=== PATIENT | male | born 1970 | race African-American/Black ===

== ENCOUNTER 2017-01-31 15:22 | Emergency (ER) | payer MEDICAID ==
[~2017-01-31] VITALS: Ht 175.3 cm; Wt 78.0 kg
[2017-01-31] MEDS ORDERED: ASPI-1159 PO (16:42)
[2017-01-31] MEDS ORDERED: EMPA1TAB7 PO (16:42)
[2017-01-31] MEDS ORDERED: LISI40TA4 PO (16:42)
[2017-01-31] MEDS ORDERED: ATOR10TA69 PO (16:42)
[2017-01-31] MEDS ORDERED: AMLO5TAB4 PO (16:42)
[2017-01-31] MEDS ORDERED: SITA100T11 PO (16:42)
[2017-01-31 16:49] LABS: BASOPHILS % 0.5 % (0.0-2.0); EOSINOPHILS % 2.4 % (0.0-5.0); HEMATOCRIT. 32.4 % (42.0-52.0); HEMOGLOBIN. 10.5 g/dL (14.0-18.0); LYMPHOCYTES % 21.8 % (20.0-50.0); MEAN CORPUSCULAR HEMOGLOBIN 26.5 pg (28.0-32.0); MEAN CORPUSCULAR VOLUME 81.7 fL (80.0-94.0); MONOCYTES % 6.3 % (2.0-8.0); PLATELET 280 x1000/uL (130-400); RED BLOOD CELL COUNT 3.97 mill/uL (4.7-6.1)
[2017-01-31 16:55] LABS: INR 1.2; PROTHROMBIN TIME 12.1 sec (9.4-11.6)
[2017-01-31 17:49] LABS: CHLORIDE 108 mEq/L (98-107)
[2017-01-31 17:52] LABS: CARBON DIOXIDE 22 mEq/L (21-32)
[2017-01-31] MEDS ORDERED: CLONIDINE 0.1MG TABLET PO ONE (19:30)
[2017-01-31 19:48] VITALS: BP 179/121
== END 2017-01-31 19:59 | disposition home or self-care (01) ==
LOC: ER 15:22
DX: R55 Syncope and collapse (principal); N17.9 Acute kidney failure, unspecified; N18.9 Chronic kidney disease, unspecified; I12.9 Hypertensive chronic kidney disease with stage 1 through stage 4 chronic kidney disease, or unspecified chronic kidney disease; E11.22 Type 2 diabetes mellitus with diabetic chronic kidney disease; Z79.82 Long term (current) use of aspirin
CPT/HCPCS: 36415; 70450; 80053; 85025; 85610; 93005; 99285; Z7610

== ENCOUNTER 2018-02-13 21:55 | Emergency (ER) | payer MEDICAID ==
[~2018-02-13] VITALS: Ht 170.2 cm; Wt 91.0 kg
[~2018-02-13 21:55] MED LIST: AMLO5TAB4 PO; ASPI-1159 PO; ATOR10TA69 PO; EMPA1TAB7 PO; LISI40TA4 PO; SITA100T11 PO
[2018-02-13] MEDS ORDERED: TETANUS, DIPHTHERIA, PERTUSSIS VAC/PF 0.5ML (>7YR OLD) IM ONE (22:45)
[2018-02-13] MEDS ORDERED: BACITRACIN ZINC OINT UDPKT TOP ONE (22:45)
[2018-02-14 00:16] VITALS: BP 115/68
== END 2018-02-14 00:39 | disposition home or self-care (01) ==
LOC: ER 21:55
DX: S80.212A Abrasion, left knee, initial encounter (principal); S60.512A Abrasion of left hand, initial encounter; N18.6 End stage renal disease; R07.89 Other chest pain; Z99.2 Dependence on renal dialysis; Z79.899 Other long term (current) drug therapy; V49.81XA Car occupant (driver) (passenger) injured in transport accident with military vehicle, initial encounter; Y93.89 Activity, other specified; Y92.89 Other specified places as the place of occurrence of the external cause; Y99.8 Other external cause status
CPT/HCPCS: 71045; 73562; 90471; 90715; 99284

== ENCOUNTER 2018-09-26 12:16 | Inpatient (IN) | payer MEDICAID ==
[~2018-09-26] VITALS: Ht 172.7 cm; Wt 80.7 kg
[2018-09-26] MEDS: BLOOD SUGAR DIAGNOSTIC STRIP TEST SCH ×2 (06:40→21:40)
[2018-09-26] MEDS: INSULIN LISPRO 100 UNITS/ML SUBCUT SCH ×2 (07:00→21:50)
[2018-09-26] MEDS ORDERED: ALBUTEROL (0.083%) 2.5MG/3ML NEB HHN ONE (12:45)
[2018-09-26] MEDS ORDERED: CALCIUM CHLORIDE 1GM/10ML SYR IV ONE (12:45)
[2018-09-26] MEDS ORDERED: SODIUM BICARBONATE 8.4% 1 MEQ/ML 50ML SYR IV ONE (12:45)
[2018-09-26] MEDS ORDERED: DEXTROSE 50% WATER 50ML SYRINGE IV ONE (12:45)
[2018-09-26] MEDS ORDERED: INSULIN REGULAR (HUMULIN R) 300UNITS/3ML IV ONE (12:45)
[2018-09-26 12:49] LABS: BASOPHILS % 1.3 % (0.0-2.0); EOSINOPHILS % 3.7 % (0.0-5.0); HEMATOCRIT. 33.6 % (42.0-52.0); HEMOGLOBIN. 10.6 g/dL (14.0-18.0); LYMPHOCYTES % 28.5 % (20.0-50.0); MEAN CORPUSCULAR HEMOGLOBIN 28.3 pg (28.0-32.0); MEAN CORPUSCULAR VOLUME 89.6 fL (80.0-94.0); MEAN PLATELET VOLUME 9.7 fl (7.4-10.4); MONOCYTES % 6.4 % (2.0-8.0); NEUTROPHILS % 60.1 % (40.0-76.0); PLATELET 241 x1000/uL (130-400); RED BLOOD CELL COUNT 3.75 mill/uL (4.7-6.1); RED CELL DISTRIBUTION WIDTH 19.5 % (11.6-14.6)
[2018-09-26 12:55] LABS: CHLORIDE 103 mEq/L (98-107)
[2018-09-26 12:59] LABS: INR 1.2; PROTHROMBIN TIME 12.2 sec (9.6-11.0)
[2018-09-26] MEDS ORDERED: SODIUM BICARBONATE 4% (2.4MEQ) 5ML VIAL IV ONE (14:33)
[2018-09-26] MEDS ORDERED: LIDOCAINE HCL 1% 20ML VIAL (Pyxis) INJ ONE (14:33)
[2018-09-26] MEDS ORDERED: NITROGLYCERIN 0.4MG TABLET SL SL PRN (16:00)
[2018-09-26] MEDS ORDERED: ACETAMINOPHEN 325MG TABLET PO PRN (16:00)
[2018-09-26] MEDS ORDERED: MAGNESIUM/ALUMINUM HYDROXIDE/SIMETHICONE 30ML UDC PO PRN (16:00)
[2018-09-26] MEDS ORDERED: GUAIFENESIN 200MG/10ML SUGAR FREE UDC PO PRN (16:00)
[2018-09-26] MEDS ORDERED: CLONIDINE 0.1MG TABLET PO PRN (16:00)
[2018-09-26] MEDS ORDERED: DOCUSATE SODIUM 100MG CAPSULE PO PRN (16:00)
[2018-09-26] MEDS ORDERED: DEXTROSE 50% WATER 50ML SYRINGE IV PRN (16:00)
[2018-09-26] MEDS ORDERED: DIPHENHYDRAMINE 50MG/ML VIAL IV PRN (16:00)
[2018-09-26] MEDS ORDERED: LORAZEPAM 0.5MG TABLET PO PRN (16:00)
[2018-09-26] MEDS ORDERED: IPRATROPIUM/ALBUTEROL 0.5-3(2.5)MG/3ML NEB INH PRN (16:00)
[2018-09-26] MEDS ORDERED: ONDANSETRON HCL 4MG/2ML INJ IV PRN (16:00)
[2018-09-26 16:29] LABS: CLARITY URINE CLEAR (CLEAR); COLOR URINE YELLOW (YELLOW); KETONES URINE NEGATIVE (NEGATIVE); LEUKOCYTE ESTERASE URINE NEGATIVE (NEGATIVE); NITRITE URINE NEGATIVE (NEGATIVE); OCCULT BLOOD URINE 1+ (NEGATIVE); PH URINE 7.5 (4.5-8.0); PROTEIN URINE 2+ (NEGATIVE); SPECIFIC GRAVITY URINE 1.012 (1.005-1.030); UROBILINOGEN URINE 0.2 E.U./dL (0.2-1.0)
[2018-09-26] MEDS ORDERED: AMLODIPINE 10MG TABLET PO NR (16:30)
[2018-09-26 20:00] VITALS: BP 145/72
[2018-09-26] MEDS ORDERED: FAMOTIDINE 20MG TABLET PO SCH (21:00)
[2018-09-26] MEDS ORDERED: ZOLPIDEM TARTRATE 5MG TABLET PO PRN (21:00)
[2018-09-26] MEDS: ENOXAPARIN 30MG/0.3ML SYR SUBCUT SCH (22:03)
[2018-09-26 23:00] VITALS: BP 145/75
[2018-09-27] VITALS (7 sets, daily range): BP systolic 136–172; BP diastolic 67–85
[2018-09-27] MEDS ORDERED: AMLO10TA4 PO (04:30)
[2018-09-27] MEDS ORDERED: ATEN-42 PO (04:31)
[2018-09-27] MEDS ORDERED: LOSA50TA20 PO (04:32)
[2018-09-27] MEDS ORDERED: HYDR-4134 PO (04:33)
[2018-09-27] MEDS ORDERED: NEPVIT PO (04:43)
[2018-09-27] MEDS ORDERED: CALC667T5 MT (04:43)
[2018-09-27] MEDS: BLOOD SUGAR DIAGNOSTIC STRIP TEST SCH ×2 (07:01→17:00)
[2018-09-27] MEDS: INSULIN LISPRO 100 UNITS/ML SUBCUT SCH ×3 (07:01→17:40)
[2018-09-27] MEDS: SEVELAMER CARBONATE 800 MG TABLET PO SCH ×3 (08:14→18:22)
[2018-09-27] MEDS ORDERED: FOLIC ACID/VITAMIN B COMP W-C TABLET PO SCH (09:00)
[2018-09-27] MEDS ORDERED: AMLODIPINE 10MG TABLET PO SCH (09:00)
[2018-09-27] MEDS ORDERED: ASPIRIN 325MG EC TABLET PO SCH (09:00)
[2018-09-27] MEDS: ENOXAPARIN 30MG/0.3ML SYR SUBCUT SCH (18:23)
== END 2018-09-27 20:33 | disposition home or self-care (01) | DRG 206 ==
LOC: ER 12:16 → 8WST 13:57 → EDBEDREQ 14:01 → ENRESERV 15:27
PROVIDERS: ADMIT Internal Medicine; ATTEND Internal Medicine
PROC: B5181ZA Fluoroscopy of Superior Vena Cava using Low Osmolar Contrast, Guidance (ICD-10-PCS; principal; 2018-09-26)
PROC: 02HV33Z Insertion of Infusion Device into Superior Vena Cava, Percutaneous Approach (ICD-10-PCS; 2018-09-26)
PROC: B543ZZA Ultrasonography of Right Jugular Veins, Guidance (ICD-10-PCS; 2018-09-26)
PROC: 5A1D70Z Performance of Urinary Filtration, Intermittent, Less than 6 Hours Per Day (ICD-10-PCS; 2018-09-27)
DX: T82.818A Embolism due to vascular prosthetic devices, implants and grafts, initial encounter (principal); E11.22 Type 2 diabetes mellitus with diabetic chronic kidney disease; I13.11 Hypertensive heart and chronic kidney disease without heart failure, with stage 5 chronic kidney disease, or end stage renal disease; T82.868A Thrombosis due to vascular prosthetic devices, implants and grafts, initial encounter; E83.51 Hypocalcemia; N18.6 End stage renal disease; Y83.2 Surgical operation with anastomosis, bypass or graft as the cause of abnormal reaction of the patient, or of later complication, without mention of misadventure at the time of the procedure; E78.00 Pure hypercholesterolemia, unspecified; D63.8 Anemia in other chronic diseases classified elsewhere; Y83.8 Other surgical procedures as the cause of abnormal reaction of the patient, or of later complication, without mention of misadventure at the time of the procedure; Y92.89 Other specified places as the place of occurrence of the external cause; Z99.2 Dependence on renal dialysis; Z79.899 Other long term (current) drug therapy; Z79.82 Long term (current) use of aspirin
CPT/HCPCS: 36415; 36556; 71045; 77001; 80061; 82962; 83036; 93005; 93970; 96374; 96375; 99285; C1752; C1769; C1887; J1642; J1650; J1815; J3490; J7050

== ENCOUNTER → 2020-01-08 | Outpatient (CLI) | payer MEDICAID ==
[~2020-01-08] MED LIST changes: +AMLO10TA4 PO; -AMLO5TAB4 PO; -ASPI-1159 PO; +ASPI-1497 PO; +ATEN-42 PO; +CALC667T6 MT; -EMPA1TAB7 PO; +HYDR-4134 PO; -LISI40TA4 PO; +LOSA50TA41 PO; +NEPVIT PO
== END | disposition home or self-care (01) ==
LOC: LAB 14:19
PROVIDERS: ATTEND Internal Medicine Cardiovascular Disease
DX: Z11.59 Encounter for screening for other viral diseases (principal)
CPT/HCPCS: C9803; U0003

== ENCOUNTER 2024-11-05 09:58 | Emergency (ER) | payer MEDICARE, MEDICAID ==
[~2024-11-05] VITALS: Ht 172.7 cm; Wt 73.0 kg
[~2024-11-05 09:58] MED LIST changes: +AMLO-905 PO; -AMLO10TA4 PO; +FOLI0.8T53 PO; -HYDR-4134 PO; +HYDR25TA78 PO; -NEPVIT PO
[2024-11-05 09:59] VITALS: O2SAT 98
[2024-11-05] MEDS: IBUPROFEN 600MG TABLET PO ONE (10:49)
[2024-11-05 11:25] VITALS: BP 147/68; PULSE 88; RESP 16; O2SAT 99
== END 2024-11-05 11:27 | disposition home or self-care (01) ==
LOC: ER 09:58
DX: M79.672 Pain in left foot (principal); I12.0 Hypertensive chronic kidney disease with stage 5 chronic kidney disease or end stage renal disease; E11.22 Type 2 diabetes mellitus with diabetic chronic kidney disease; N18.6 End stage renal disease; E78.00 Pure hypercholesterolemia, unspecified; Z79.899 Other long term (current) drug therapy; Z79.82 Long term (current) use of aspirin; Z98.890 Other specified postprocedural states
CPT/HCPCS: 73630; 99283

== ENCOUNTER 2024-11-21 12:02 | Inpatient (IN) | payer MEDICARE, MEDICAID ==
[~2024-11-21] VITALS: Ht 175.3 cm; Wt 84.5 kg
[2024-11-21 15:14] LABS: BASOPHILS % 0.4 % (0.0-2.0); EOSINOPHILS % 2.4 % (0.0-5.0); HEMATOCRIT. 39.2 % (42.0-52.0); HEMOGLOBIN. 12.4 g/dL (14.0-18.0); LYMPHOCYTES % 10.7 % (20.0-50.0); MEAN PLATELET VOLUME 10.7 fl (7.4-10.4); MONOCYTES % 8.1 % (2.0-8.0); NEUTROPHILS % 78.4 % (40.0-76.0); PLATELET 303 x1000/uL (130-400); RED BLOOD CELL COUNT 4.30 mill/uL (4.7-6.1); RED CELL DISTRIBUTION WIDTH 17.6 % (11.6-14.6)
[2024-11-21 15:26] LABS: INR 1.2; UREA NITROGEN BLOOD 95.0 mg/dL (9-23)
[2024-11-21 15:34] LABS: CREATININE 21.5 mg/dL (0.6-1.3)
[2024-11-21] MEDS: SODIUM ZIRCONIUM CYCLOSILICATE 10GM/PACKET PO ONE (16:43)
[2024-11-21] MEDS: INSULIN REGULAR (HUMULIN R) 1000UNITS/10ML VIAL IV ONE (17:02)
[2024-11-21] MEDS: DEXTROSE 50% WATER 50ML SYRINGE IV ONE (17:03)
[2024-11-21] MEDS ORDERED: HYDR100T31 PO (17:36)
[2024-11-21] MEDS ORDERED: LEVE500T19 PO (17:36)
[2024-11-21] MEDS ORDERED: LATA2.5D14 EACHEYE (17:41)
[2024-11-21] MEDS ORDERED: CLON1PAT10 TP (17:41)
[2024-11-21] MEDS ORDERED: METO-539 PO (17:41)
[2024-11-21] MEDS ORDERED: PREG75CA76 PO (17:41)
[2024-11-21] MEDS ORDERED: PANT40TA51 PO (17:41)
[2024-11-21] MEDS ORDERED: TRELEGY PO (17:42)
[2024-11-21 17:45] VITALS: BP 124/67; PULSE 61; RESP 18; TEMP 37; O2SAT 99
[2024-11-21] MEDS ORDERED: ONDANSETRON HCL 4MG/2ML INJ IV PRN (17:45)
[2024-11-21] MEDS ORDERED: ACETAMINOPHEN 325MG TABLET PO PRN (17:45)
[2024-11-21] MEDS ORDERED: DEXTROSE 50% WATER 50ML SYRINGE IV PRN (17:45)
[2024-11-21 20:00] VITALS: BP 133/68; PULSE 89; RESP 19; TEMP 36.5; O2SAT 95
[2024-11-21] MEDS: BLOOD SUGAR DIAGNOSTIC STRIP TEST SCH (21:00)
[2024-11-21] MEDS: INSULIN LISPRO 100 UNITS/ML SUBCUT SCH (21:00)
[2024-11-21] MEDS: METOPROLOL TARTRATE 50MG TABLET PO SCH (21:00)
[2024-11-21] MEDS: VANCOMYCIN 1.75GM PMX (XELLIA) 350 ML IV SCH (21:50)
[2024-11-21] MEDS: FAMOTIDINE 20MG/2ML VIAL IV SCH (21:50)
[2024-11-21] MEDS: ATORVASTATIN CALCIUM 10MG TABLET PO SCH (21:50)
[2024-11-21] MEDS: HYDRALAZINE HCL 100MG TABLET PO SCH (21:50)
[2024-11-22] MEDS: HYDROCODONE/ACETAMINOPHEN 5/325MG TABLET PO PRN (02:30)
[2024-11-22 04:00] VITALS: BP 108/45; PULSE 45; RESP 19; TEMP 36.7; O2SAT 100
[2024-11-22 08:00] VITALS: BP 147/58; PULSE 71; RESP 18; TEMP 36.5; O2SAT 98
[2024-11-22 08:09] LABS: BASOPHILS % 0.4 % (0.0-2.0); EOSINOPHILS % 3.4 % (0.0-5.0); HEMATOCRIT. 36.5 % (42.0-52.0); HEMOGLOBIN. 11.7 g/dL (14.0-18.0); LYMPHOCYTES % 14.9 % (20.0-50.0); MEAN PLATELET VOLUME 10.6 fl (7.4-10.4); MONOCYTES % 9.1 % (2.0-8.0); NEUTROPHILS % 72.2 % (40.0-76.0); PLATELET 272 x1000/uL (130-400); RED BLOOD CELL COUNT 4.02 mill/uL (4.7-6.1); RED CELL DISTRIBUTION WIDTH 17.9 % (11.6-14.6)
[2024-11-22] MEDS ORDERED: LOSARTAN 50 MG TABLET PO SCH (09:00)
[2024-11-22] MEDS ORDERED: ATENOLOL 25MG TABLET PO SCH (09:00)
[2024-11-22] MEDS ORDERED: ASPIRIN 81MG EC TABLET PO SCH (09:00)
[2024-11-22] MEDS: AMLODIPINE 10MG TABLET PO SCH (09:00)
[2024-11-22] MEDS: FOLIC ACID/VITAMIN B COMP W-C TABLET PO SCH (09:11)
[2024-11-22 09:19] LABS: CREATININE 20.4 mg/dL (0.6-1.3); UREA NITROGEN BLOOD 101.0 mg/dL (9-23)
[2024-11-22] MEDS ORDERED: SODIUM ZIRCONIUM CYCLOSILICATE 10GM/PACKET PO SCH (11:45)
[2024-11-22 12:00] VITALS: BP 131/52; PULSE 80; RESP 18; TEMP 36.2; O2SAT 98
[2024-11-22] MEDS ORDERED: NALOXONE HCL 0.4MG/ML VIAL IV PRN (14:45)
[2024-11-22 16:00] VITALS: BP 130/66; PULSE 81; RESP 18; TEMP 36.1; O2SAT 98
[2024-11-22 20:00] VITALS: BP 132/61; PULSE 73; RESP 19; TEMP 36.3; O2SAT 99
[2024-11-22] MEDS: ZOLPIDEM TARTRATE 5MG TABLET PO PRN (21:08)
[2024-11-23] VITALS (40 sets, daily range): BP systolic 75–161; BP diastolic 33–130; PULSE 64–105; RESP 10–20; TEMP 36.2–36.6; O2SAT 88–100
[2024-11-23] MEDS: DEXT 5%/0.9% NACL 1,000 ML IV SCH (00:32)
[2024-11-23 08:43] LABS: BASOPHILS % 1.0 % (0.0-2.0); EOSINOPHILS % 4.3 % (0.0-5.0); HEMATOCRIT. 38.5 % (42.0-52.0); HEMOGLOBIN. 12.3 g/dL (14.0-18.0); LYMPHOCYTES % 13.7 % (20.0-50.0); MEAN PLATELET VOLUME 10.5 fl (7.4-10.4); MONOCYTES % 10.7 % (2.0-8.0); NEUTROPHILS % 70.3 % (40.0-76.0); PLATELET 340 x1000/uL (130-400); RED BLOOD CELL COUNT 4.23 mill/uL (4.7-6.1); RED CELL DISTRIBUTION WIDTH 18.2 % (11.6-14.6)
[2024-11-23] MEDS ORDERED: ALTEPLASE 2MG/VIAL ITC SCH (09:00)
[2024-11-23 09:48] LABS: BILIRUBIN TOTAL 0.2 mg/dL (0.1-1.0); PROTEIN TOTAL 7.7 g/dL (6.0-8.3)
[2024-11-23 09:50] LABS: ASPARTATE AMINOTRANSFERASE < 8 IU/L (<34); CREATININE 21.4 mg/dL (0.6-1.3); UREA NITROGEN BLOOD 111 mg/dL (9-23)
[2024-11-23] MEDS ORDERED: IODIXANOL 320MG/ML 100 ML BOTTLE IV ONE (10:33)
[2024-11-23] MEDS ORDERED: LIDOCAINE HCL 1% 10 MG/ML 10ML VIAL ONE ×3 (10:35→13:06)
[2024-11-23] MEDS ORDERED: FENTANYL CITRATE/PF 50MCG/ML 2ML VIAL ONE (10:47)
[2024-11-23 15:03] LABS: HEPATITIS A AB IGM NEGATIVE (Negative)
[2024-11-23 15:04] LABS: HEPATITIS B CORE AB IGM NEGATIVE (Negative); HEPATITIS C AB NON REACTIVE (Neg) (Negative)
[2024-11-24 04:00] VITALS: BP 124/64; PULSE 97; TEMP 36.7
[2024-11-24 08:00] VITALS: BP 137/43; PULSE 91; RESP 14; TEMP 36.9; O2SAT 97
[2024-11-24 12:00] VITALS: BP 142/42; PULSE 70; RESP 18; TEMP 37.4; O2SAT 96
[2024-11-24 16:00] VITALS: BP 132/44; PULSE 82; RESP 17; TEMP 36.9; O2SAT 100
[2024-11-24] MEDS: SEVELAMER CARBONATE 800 MG TABLET PO SCH (17:55)
[2024-11-24 20:00] VITALS: BP 162/49; PULSE 86; RESP 19; TEMP 36.4; O2SAT 100
[2024-11-25] VITALS (24 sets, daily range): BP systolic 110–188; BP diastolic 50–101; PULSE 72–103; RESP 11–19; TEMP 36.2–36.8; O2SAT 95–99
[2024-11-25] MEDS: CALCITRIOL 0.25MCG CAPSULE PO SCH (09:48)
[2024-11-25] MEDS ORDERED: IOHEXOL-350 100 ML BOTTLE ONE (10:02)
[2024-11-25 10:53] LABS: BASOPHILS % 0.9 % (0.0-2.0); EOSINOPHILS % 4.3 % (0.0-5.0); HEMATOCRIT. 34.0 % (42.0-52.0); HEMOGLOBIN. 10.9 g/dL (14.0-18.0); LYMPHOCYTES % 9.3 % (20.0-50.0); MEAN PLATELET VOLUME 9.8 fl (7.4-10.4); MONOCYTES % 9.5 % (2.0-8.0); NEUTROPHILS % 76.0 % (40.0-76.0); PLATELET 320 x1000/uL (130-400); RED BLOOD CELL COUNT 3.76 mill/uL (4.7-6.1); RED CELL DISTRIBUTION WIDTH 17.6 % (11.6-14.6)
[2024-11-25 11:10] LABS: UREA NITROGEN BLOOD 66 mg/dL (9-23)
[2024-11-25 11:11] LABS: UREA NITROGEN BLOOD 62.0 mg/dL (9-23)
[2024-11-25 11:12] LABS: PHOSPHORUS 5.9 mg/dL (2.5-4.9)
[2024-11-25 12:12] LABS: CREATININE 13.2 mg/dL (0.6-1.3)
[2024-11-25 12:53] LABS: CREATININE 13.9 mg/dL (0.6-1.3)
[2024-11-25] MEDS ORDERED: HEPARIN 1000 UNITS/ML 10ML ONE (13:39)
[2024-11-25] MEDS ORDERED: LIDOCAINE HCL 1% 10 MG/ML 10ML VIAL ONE (13:39)
[2024-11-25] MEDS ORDERED: FENTANYL CITRATE/PF 50MCG/ML 2ML VIAL ONE (13:51)
[2024-11-25] MEDS ORDERED: FENTANYL CITRATE/PF 50MCG/ML 2ML VIAL IV ONE (14:30)
[2024-11-25] MEDS: VANCOMYCIN 750MG PMX (XELLIA) 150 ML IV SCH (16:00)
[2024-11-26] VITALS: BP 119/50; PULSE 79; RESP 19; TEMP 36.9; O2SAT 99
[2024-11-26] MEDS: VANCOMYCIN 750MG PMX (XELLIA) 150 ML IV NR (02:10)
[2024-11-26 04:00] VITALS: BP 114/72; PULSE 91; RESP 19; TEMP 37.3; O2SAT 98
[2024-11-26 08:00] VITALS: BP 115/51; PULSE 94; RESP 20; TEMP 36.1; O2SAT 98
[2024-11-26 10:24] VITALS: BP 115/51; PULSE 94; TEMP 96.9; O2SAT 98
== END 2024-11-26 11:20 | disposition home or self-care (01) | DRG 252 ==
LOC: ER 12:47 → EDBEDREQTM 15:41 → EDBEDREQ 15:41 → ENRESERV 16:14 → 6WST 17:30
PROVIDERS: ADMIT Internal Medicine; ATTEND Internal Medicine
PROC: 03773ZZ Dilation of Right Brachial Artery, Percutaneous Approach (ICD-10-PCS; principal; 2024-11-23)
PROC: 057D3ZZ Dilation of Right Cephalic Vein, Percutaneous Approach (ICD-10-PCS; 2024-11-23)
PROC: 5A1D70Z Performance of Urinary Filtration, Intermittent, Less than 6 Hours Per Day (ICD-10-PCS; 2024-11-23)
PROC: 3E05317 Introduction of Other Thrombolytic into Peripheral Artery, Percutaneous Approach (ICD-10-PCS; 2024-11-23)
PROC: 06HY33Z Insertion of Infusion Device into Lower Vein, Percutaneous Approach (ICD-10-PCS; 2024-11-23)
PROC: B54BZZA Ultrasonography of Right Lower Extremity Veins, Guidance (ICD-10-PCS; 2024-11-23)
PROC: B51M1ZZ Fluoroscopy of Right Upper Extremity Veins using Low Osmolar Contrast (ICD-10-PCS; 2024-11-23)
PROC: 3E03317 Introduction of Other Thrombolytic into Peripheral Vein, Percutaneous Approach (ICD-10-PCS; 2024-11-23)
PROC: 5A1D70Z Performance of Urinary Filtration, Intermittent, Less than 6 Hours Per Day (ICD-10-PCS; 2024-11-25)
PROC: 0JH63XZ Insertion of Tunneled Vascular Access Device into Chest Subcutaneous Tissue and Fascia, Percutaneous Approach (ICD-10-PCS; 2024-11-25)
PROC: 02H633Z Insertion of Infusion Device into Right Atrium, Percutaneous Approach (ICD-10-PCS; 2024-11-25)
PROC: B548ZZA Ultrasonography of Superior Vena Cava, Guidance (ICD-10-PCS; 2024-11-25)
PROC: B518ZZA Fluoroscopy of Superior Vena Cava, Guidance (ICD-10-PCS; 2024-11-25)
DX: T82.868A Thrombosis due to vascular prosthetic devices, implants and grafts, initial encounter (principal); N18.6 End stage renal disease; E11.52 Type 2 diabetes mellitus with diabetic peripheral angiopathy with gangrene; I12.0 Hypertensive chronic kidney disease with stage 5 chronic kidney disease or end stage renal disease; Y71.2 Prosthetic and other implants, materials and accessory cardiovascular devices associated with adverse incidents; E11.22 Type 2 diabetes mellitus with diabetic chronic kidney disease; E87.5 Hyperkalemia; D64.9 Anemia, unspecified; I25.10 Atherosclerotic heart disease of native coronary artery without angina pectoris; T82.858A Stenosis of other vascular prosthetic devices, implants and grafts, initial encounter; E78.00 Pure hypercholesterolemia, unspecified; G40.909 Epilepsy, unspecified, not intractable, without status epilepticus; E11.40 Type 2 diabetes mellitus with diabetic neuropathy, unspecified; Z99.2 Dependence on renal dialysis; Z95.1 Presence of aortocoronary bypass graft; Z79.82 Long term (current) use of aspirin; Y92.89 Other specified places as the place of occurrence of the external cause
CPT/HCPCS: 36415; 36556; 36558; 36905; 73630; 75635; 76937; 77001; 80048; 80053; 80202; 82962; 83036; 83605; 83735; 83970; 84100; 84145; 85014; 85018; 85025; 86705; 86709; 86850; 86900; 87340; 90935; 93922; 93923; 97162; 99152; 99153; 99285; C1725; C1752; C1766; C1769; C1887; G0378; J1308; J1642; J1644; J1815; J2003; J2997; J3010; J3370; J7042; Q9967; G0500